=== PATIENT | male | born 1930 | race Caucasian/White ===

== ENCOUNTER → 2017-02-03 | Outpatient (CLI) | payer OTHER | LOC: FIMAGING 10:24 | PROVIDERS: ATTEND Surgery | DX: R68.81 Early satiety (principal); N20.0 Calculus of kidney; Z90.89 Acquired absence of other organs ==

== ENCOUNTER 2017-03-31 11:21 | Emergency (ER) | payer OTHER ==
[2017-03-31 12:37] VITALS: BP 175/72; PULSE 72; RESP 18; TEMP 97.3; O2SAT 94
--- NOTE | 2017-03-31 12:39 | EDPHY ---
H & P Time Seen by Provider: 03/31/17 11:44 HPI/ROS: HPI Forearm skin lesion pain. 86-year-old male by private vehicle with his son. This patient has had a chronic circular raised lesion on his left mid forearm for years. He apparently bumped it 1-2 days ago and he has been having pain and some bleeding from the under edge of it. Tried to get into see his primary care physician and was unable to. He is here with his son. ROS: Constitutional: No fever, no chills. No weakness. Musculoskeletal: As above. Skin: No rashes. No lacerations or abrasions. Neurological: No focal weakness or altered sensation. Past medical history: Type 2 diabetes, prostatic hypertrophy, hypertension. His primary care physician is Dr. Dailey. Social history: Nonsmoker. . Here with his son currently. Physical Exam: General Appearance: Alert, no distress. This patient is responding to questions appropriately and in full sentences. This patient appears well- hydrated and well-nourished. Eyes: Pupils equal and round no pallor or injection. No lid edema, erythema or injection. Left upper extremity/forearm exam: Significant for a well-circumscribed circular raised lesion indicative of a sebaceous cyst it is about the size of a nickel mid ulnar forearm. There is a small amount of bleeding from the under edge of it. Please see wound care note below. Respiratory: There are no retractions, lungs are clear to auscultation with good air movement bilaterally. Cardiovascular: Regular rate and rhythm. No murmur. Gastrointestinal: Abdomen is soft and nontender, no masses, bowel sounds normal. No focal tenderness at McBurney's point. No Garza sign. Neurological: Motor sensory function is grossly intact. Cranial nerves are normal. Gait is normal. Skin: Warm and dry, no rashes. Musculoskeletal: Neck is supple and nontender. Extremities are symmetrical. All joints range without pain or impingement. Psychiatric: No agitation. No depression. Database: EKG: Imaging: Procedures: Procedure: Abscess drainage. The patient's abscess versus sebaceous cyst was located on the left mid forearm. I obtained verbal consent from the patient to drain the abscess who was informed about the possibility of bleeding and pain. The abscess was incised with 11 Blade scalpel and a moderate amount of sebaceous material was extruded. During extrusion it was noted that the whole underside 50% of the lesion had been detached from the base skin. This likely happened when the patient bumped it. I then ended up excising the rest of this skin lesion from the base skin, removing the capsule of the cyst and the remaining sebaceous material, I then irrigated and cleansed the wound thoroughly. The wound was then sutured as below. The patient tolerated the procedure well. The procedure was performed by myself. Procedure: Laceration repair. Verbal consent was obtained from the patient. The 2 cm circular laceration on the left ulnar are mid forearm was anesthetized in the usual fashion. The wound was irrigated, draped and explored to its base with a gloved finger. There were no deep structures involved. No tendon injury was identified. No foreign body was identified. The wound was repaired with 5, 4.0 Ethilon sutures placed in interrupted fashion. The wound repair was tolerated well and there were no complications. The procedure was performed by myself. Emergency department course: Gram stain and culture sent. Tissue sample sent for pathology report. After above noted incision and drainage and marsupialization and suture repair, wound care was discussed with the patient. As he is diabetic I will place him on Augmentin for 4 days at 875 mg twice daily. He is to follow up with his primary care physician on Monday or Monday of next week for wound check. His sutures are to be removed in 10 days. He feels comfortable going home with his son. He understands his follow-up. Return to emergency department precautions thoroughly reviewed with him. All of his questions were answered. He was discharged in good condition. Differential Diagnosis: The differential diagnosis on this patient includes but is not limited to sebaceous cyst left forearm. Abscess unlikely. This represents a partial list of diagnoses considered. These considerations are based on history, physical exam, past history, reassessment and diagnostic testing. Smoking Status: Former smoker Allergies/Adverse Reactions: No Known Allergies Allergy (Verified 03/31/17 12:13) Home Medications: Medication Instructions Recorded Lisinopril [Zestril 40 mg (*)] 40 mg PO DAILY 12/22/15 Omeprazole [Prilosec 20 mg] 20 mg PO DAILY 12/22/15 Terazosin HCl [Hytrin 5 MG (*)] 5 mg PO HS 12/22/15 amLODIPine BESYLATE [Norvasc 10 mg 10 mg PO DAILY 12/22/15 (*)] glipiZIDE [Glipizide] 5 mg PO BID 12/22/15 C/E/Zn/Cu/OM3/DHA/EPA/LUT/ZEAX 1 each PO DAILY 12/23/15 [Preservision Areds 2 Softgel] Amoxicillin/Clavulanate Pot 875 mg PO BID 5 Days tab 03/31/17 [Augmentin 875 mg tab] Departure - Departure Disposition: Home, Routine, Self-Care Clinical Impression: Sebaceous cyst, Sebaceous cyst left forearm, Encounter for incision and drainage procedure Condition: Good Instructions: Dermal Cyst Excision (DC), Laceration (ED) Additional Instructions: Read and follow provided instructions. Follow-up with your primary care physician in on Monday or Monday of next week for a wound check. Your sutures are to be removed in 12-14 days. Take medication as prescribed. Augmentin antibiotic, 875 mg to be taken twice daily for 5 days. Return to the emergency department for signs of infection, pain or other serious concerns. Referrals: William Dailey DO [Primary Care Provider] - As per Instructions Prescriptions: Amoxicillin/Clavulanate Pot [Augmentin 875 mg tab] 875 mg PO BID 5 Days tab
[2017-03-31] MEDS ORDERED: AMOXICILLIN/CLAVULANATE POT 875/125 MG TAB PO ONE (12:43)
== END 2017-03-31 12:55 | disposition home or self-care (01) ==
LOC: CED 11:21
PROC: 0H9EXZZ Drainage of Left Lower Arm Skin, External Approach (ICD-10-PCS; principal; 2017-03-31)
DX: L72.3 Sebaceous cyst (principal); E11.9 Type 2 diabetes mellitus without complications; I10 Essential (primary) hypertension; Z87.891 Personal history of nicotine dependence